=== PATIENT | female | born 2000 | race African-American/Black ===

== ENCOUNTER 2020-06-13 08:40 | Inpatient (IN) | payer BC, OTHER ==
[2020-06-13 09:08] VITALS: BMI 24.7
[2020-06-13] MEDS ORDERED: Butorphanol Tartrate 1 MG/ML VIAL SLOW IVP PRN (09:48)
[2020-06-13] MEDS ORDERED: hydrALAZINE 20 MG/ML VIAL SLOW IVP PRN ×2 (09:48→15:49)
[2020-06-13] MEDS ORDERED: Famotidine/PF 20 mg/2ml Vial SLOW IVP PRN (09:48)
[2020-06-13] MEDS ORDERED: Bicitra 30 ML UDCUP PO PRN (09:48)
[2020-06-13] MEDS ORDERED: Acetaminophen 500 MG TAB PO PRN (09:48)
[2020-06-13] MEDS ORDERED: Promethazine HCl 25 MG/ML VIAL IM PRN ×3 (09:48→15:49)
[2020-06-13] MEDS ORDERED: Ondansetron PF 4 MG/2 ML Vial IVP PRN ×2 (09:48→13:46)
[2020-06-13] MEDS ORDERED: CEFAZOLIN 2 GM in Premix Bag 1 BAG IVPB SCH (10:00)
[2020-06-13] MEDS: Lactated Ringer's 1,000 ML IV SCH ×2 (10:30→11:55)
[2020-06-13 10:46] LABS: Hemoglobin 9.3 g/dL (12.0-15.5); Mean Corpuscular HGB CONC 31.5 g/dL (32.0-36.0); Mean Corpuscular Hemoglobin 21.7 pg (27.0-33.0); Mean Corpuscular Volume 68.9 fl (81.6-98.3); Mean Platelet Volume 9.6 fl (7.4-10.4); Platelet Count 289 10x3/uL (150-450); RBC Distribution Width 21.4 % (11.5-14.5); Red Blood Cell (RBC) Count 4.28 10x6/uL (3.90-5.03); White Blood Cell (WBC) Count 12.6 10x3/uL (3.5-10.5)
[2020-06-13] MEDS ORDERED: Bicitra 30 ML UDCUP ONE (11:13)
[2020-06-13 11:32] LABS: Hep B Surf Ag Non-Reactive S/CO (NonReactive); Syphilis Antibody Nonreactive (Nonreactive); Syphilis Antibody Index 0.04 S/CO (<1.00 Non-Reactive)
[2020-06-13 11:44] LABS: HBSAg Index 0.17 S/CO (0-0.99)
[2020-06-13] MEDS ORDERED: ePHEDrine Sulfate 50 MG/10 ML VIAL ONE (12:02)
[2020-06-13] MEDS ORDERED: Midazolam HCl 2 mg/2 ml Vial ONE (12:02)
[2020-06-13] MEDS ORDERED: Ketorolac Tromethamine 30 MG/ML VIAL ONE (12:02)
[2020-06-13] MEDS ORDERED: Morphine PF 10 MG/10 ML VIAL ONE (12:02)
[2020-06-13] MEDS ORDERED: Dexamethasone 4 mg/ml Vial ONE (12:03)
[2020-06-13] MEDS ORDERED: Phenylephrine 10 MG/ML VIAL ONE (12:03)
[2020-06-13] MEDS ORDERED: Oxytocin 10 UNITS/ML VIAL ONE (12:03)
[2020-06-13] MEDS ORDERED: Ondansetron PF 4 MG/2 ML Vial ONE (12:03)
[2020-06-13] MEDS ORDERED: Azithromycin 500 MG in Sodium Chloride 0.9% 250 ML 250 ML IVPB SCH (12:30)
[2020-06-13] MEDS ORDERED: Meperidine HCl/PF 25 MG/ML VIAL SLOW IVP PRN (13:46)
[2020-06-13] MEDS ORDERED: Naloxone HCl 0.4 mg/ml Vial IVP PRN ×2 (13:46)
[2020-06-13] MEDS ORDERED: Ketorolac Tromethamine 30 MG/ML VIAL IVP PRN (13:46)
[2020-06-13] MEDS ORDERED: diphenhydrAMINE 50 MG/ML VIAL IVP PRN (13:46)
[2020-06-13] MEDS ORDERED: L&D-Morphine 4 MG/ML VIAL SLOW IVP PRN (13:46)
[2020-06-13] MEDS ORDERED: Ondansetron HCl/PF 4 MG/2 ML Vial IVP PRN (13:46)
[2020-06-13] MEDS ORDERED: Promethazine HCl 25 MG SUPP PR PRN (13:46)
[2020-06-13] MEDS ORDERED: Naloxone HCl 0.4 mg/ml Vial IV PRN (13:46)
[2020-06-13] MEDS ORDERED: HYDROmorphone 2 MG/ML VIAL SLOW IVP PRN (13:46)
[2020-06-13] MEDS ORDERED: Ketorolac Tromethamine 30 MG/ML VIAL IVP SCH (14:00)
[2020-06-13] MEDS ORDERED: Communication Order-Pharmacy FS SCH (14:00)
[2020-06-13] MEDS ORDERED: Adacel (T-DAP) 0.5 ML SYRINGE IM ONE (15:49)
[2020-06-13] MEDS ORDERED: diphenhydrAMINE 25 MG CAP PO PRN (15:49)
[2020-06-13] MEDS ORDERED: Lanolin Ointment 7 GM TUBE TOP PRN (15:49)
[2020-06-13] MEDS ORDERED: Acetaminophen 325 MG TAB PO PRN (15:49)
[2020-06-13] MEDS ORDERED: Simethicone Chewable 80 MG TAB PO PRN (15:49)
[2020-06-13 19:53] LABS: SARS-CoV-2 PCR NAA for Saliva Not Detected (NotDetected)
[2020-06-13] MEDS: levETIRAcetam 500 MG TAB PO SCH (23:33)
[2020-06-13] MEDS: Docusate Calcium (SURFAK) 240 MG CAP PO SCH (23:33)
[2020-06-14] MEDS ORDERED: HYDROcodone/Acetaminophen 5/325 mg Tablet PO PRN ×2 (02:00)
[2020-06-14 07:09] LABS: Hemoglobin 7.8 g/dL (12.0-15.5); Mean Corpuscular HGB CONC 30.7 g/dL (32.0-36.0); Mean Corpuscular Hemoglobin 21.3 pg (27.0-33.0); Mean Corpuscular Volume 69.4 fl (81.6-98.3); Mean Platelet Volume 9.7 fl (7.4-10.4); Platelet Count 264 10x3/uL (150-450); Red Blood Cell (RBC) Count 3.66 10x6/uL (3.90-5.03); White Blood Cell (WBC) Count 16.1 10x3/uL (3.5-10.5)
[2020-06-14] MEDS: Docusate Calcium (SURFAK) 240 MG CAP PO SCH ×2 (08:34→21:27)
[2020-06-14] MEDS: Prenatal Vitamin 1 TAB PO SCH (08:34)
[2020-06-14] MEDS: levETIRAcetam 500 MG TAB PO SCH ×2 (09:54→21:27)
[2020-06-14] MEDS: Ibuprofen 800 MG TAB PO SCH ×2 (14:21→21:27)
[2020-06-15] MEDS: Ibuprofen 800 MG TAB PO SCH ×3 (05:32→10:13)
[2020-06-15] MEDS: Prenatal Vitamin 1 TAB PO SCH (09:12)
[2020-06-15] MEDS: levETIRAcetam 500 MG TAB PO SCH (09:12)
[2020-06-15] MEDS: Docusate Calcium (SURFAK) 240 MG CAP PO SCH (09:12)
[2020-06-15 16:37] VITALS: BP 115/52; TEMP 97.9
== END 2020-06-15 14:40 | disposition home or self-care (01) | DRG 788 ==
LOC: CSHLD/OP 08:40 → CSHLD 10:29 → CSHPP 16:00
PROVIDERS: ADMIT Obstetrics & Gynecology; ATTEND Obstetrics & Gynecology
PROC: 10D00Z1 Extraction of Products of Conception, Low, Open Approach (ICD-10-PCS; principal; 2020-06-13)
DX: O99.354 Diseases of the nervous system complicating childbirth (principal); Z20.822 Contact with and (suspected) exposure to COVID-19; Z37.0 Single live birth; Z3A.38 38 weeks gestation of pregnancy; G40.909 Epilepsy, unspecified, not intractable, without status epilepticus
CPT/HCPCS: 36415; 51702; 85027; 86780; 86850; 86900; 86901; 87340; 87635; J1100; J1885; J2250; J2270; J2370; J2405; U0003; U0005

== ENCOUNTER 2022-04-05 10:55 | Emergency (ER) | payer BC, OTHER ==
[2022-04-05 11:47] LABS: Bilirubin Neg (Negative); Blood, Urine Negative (Negative); Clarity Slightly Cloudy (Clear); Glucose, Urine (Dipstick) Normal (Negative); Ketone, Urine Negative (Negative); Leukocyte 500 (Negative); Nitrite Positive (Negative); Protein, Urine (Dipstick) 15 mg/dl (Neg-Trace)
[2022-04-05 11:53] LABS: Pregnancy Test - Urine (BHCG) POSITIVE (Negative); Pregu Control Background? CLEAR/WHITE (CLR/WHITE); Pregu Control Bar Appear? YES (CONTROL BAR)
[2022-04-05 12:00] LABS: RBC/HPF 0-3 HPF (0-3)
[2022-04-05 12:01] LABS: Bacteria/HPF 4+ HPF (None Seen)
[2022-04-05 13:42] LABS: #Eosinphils 0.1 10x3/uL (0.0-0.5); #Monocytes 0.6 10x3/uL (0.0-1.1); #Neutrophils 6.7 10x3/uL (1.5-8.4); %Basophils 0.4 % (0.0-2.0); %Eosinophils 1.3 % (0.0-6.0); %Lymphocytes 26.1 % (18.0-47.0); %Monocytes 5.8 % (0.0-10.0); %Neutrophils 66.1 % (40.0-75.0); Hemoglobin 9.6 g/dL (12.0-15.5); Mean Corpuscular HGB CONC 32.8 g/dL (32.0-36.0); Mean Corpuscular Hemoglobin 23.6 pg (27.0-33.0); Mean Platelet Volume 9.4 fl (7.4-10.4); Platelet Count 342 10x3/uL (150-450); RBC Distribution Width 16.6 % (11.5-14.5); Red Blood Cell (RBC) Count 4.07 10x6/uL (3.90-5.03); White Blood Cell (WBC) Count 10.1 10x3/uL (3.5-10.5)
[2022-04-05 13:50] LABS: ALT (SGPT) 6 U/L (8-55); AST (SGOT) 13 U/L (5-34); Albumin 3.8 g/dL (3.5-5.0); Alkaline Phosphatase 35 U/L (40-110); Anion Gap 12 mmol/L (10-20); BUN (Urea Nitrogen) 12 mg/dL (7.0-18.7); Bilirubin, Total 0.3 mg/dL (0.2-1.2); Calc. Creatinine Clearance 0 mL/min (70-130); Calcium 9.1 mg/dL (7.8-10.44); Carbon Dioxide 22 mmol/L (22-29); Chloride 105 mmol/L (98-107); Estimated GFR 126; Globulin 3.4 g/dL (2.4-3.5); Glucose 76 mg/dL (70-105); Lipase 25 U/L (8-78); Potassium 3.9 mmol/L (3.5-5.1); Protein, Total 7.2 g/dL (6.0-8.3); Sodium 135 mmol/L (136-145)
== END 2022-04-05 16:25 | disposition home or self-care (01) ==
LOC: CSHERS 10:55
DX: O99.891 Other specified diseases and conditions complicating pregnancy (principal); R10.13 Epigastric pain; O23.41 Unspecified infection of urinary tract in pregnancy, first trimester; N39.0 Urinary tract infection, site not specified; Z3A.08 8 weeks gestation of pregnancy
CPT/HCPCS: 76856; 80053; 81003; 81015; 81025; 83690; 84702; 85025

== ENCOUNTER 2022-05-27 10:27 | Emergency (ER) | payer BC, OTHER ==
[2022-05-27 12:00] LABS: Bilirubin Neg (Negative); Blood, Urine Negative (Negative); Clarity Cloudy (Clear); Glucose, Urine (Dipstick) Normal (Negative); Ketone, Urine Negative (Negative); Leukocyte 500 (Negative); Nitrite Positive (Negative); Protein, Urine (Dipstick) Negative (Neg-Trace); Urobilinogen Normal mg/dL (Less than 2)
[2022-05-27 12:06] LABS: RBC/HPF 0-3 HPF (0-3)
[2022-05-27 12:07] LABS: Bacteria/HPF 4+ HPF (None Seen); Squamous Epithelial 0-3 HPF (0-3)
[2022-05-27] MEDS ORDERED: Nitrofurantoin Monohyd/M-Cryst 100 MG CAP PO SCH (12:45)
== END 2022-05-27 13:03 | disposition home or self-care (01) ==
LOC: CSHERS 10:27
DX: O99.891 Other specified diseases and conditions complicating pregnancy (principal); R82.71 Bacteriuria; Z3A.17 17 weeks gestation of pregnancy
CPT/HCPCS: 76815; 81003; 81015; 87077; 87086; 87186

== ENCOUNTER 2023-09-25 07:25 | Emergency (ER) | payer BC, OTHER ==
[2023-09-25] MEDS ORDERED: Ibuprofen 200 MG TAB ONE (07:45)
[2023-09-25 08:57] LABS: Bilirubin Neg (Negative); Blood, Urine Negative (Negative); Clarity Clear (Clear); Glucose, Urine (Dipstick) Normal (Negative); Ketone, Urine Negative (Negative); Leukocyte Negative (Negative); Nitrite Negative (Negative); Protein, Urine (Dipstick) 15 mg/dl (Neg-Trace); Specific Gravity, Urine 1.015 (1.005-1.030)
[2023-09-25 09:08] LABS: Pregnancy Test - Urine (BHCG) Negative (Negative); Pregu Control Background? CLEAR/WHITE (CLR/WHITE); Pregu Control Bar Appear? YES (CONTROL BAR); Specific Gravity 1.015 (1.002-1.036)
[2023-09-25 09:18] LABS: Bacteria/HPF 3+ HPF (None Seen); CAUTI Indications for Culture Pelvic or flank pain; Mucous/LPF 3+ LPF (<2+); RBC/HPF None Seen HPF (0-3); Squamous Epithelial 0-3 HPF (0-3); Urine Culture Reflex No No; WBC/HPF 0-3 HPF (0-3)
== END 2023-09-25 09:20 | disposition home or self-care (01) ==
LOC: CSHERS 07:25
DX: M54.50 Low back pain, unspecified (principal)
CPT/HCPCS: 81001; 81025; 99283

== ENCOUNTER 2023-12-19 17:17 | Emergency (ER) | payer BC, OTHER ==
[2023-12-19] MEDS ORDERED: Ketorolac Tromethamine 30 MG (1 mL) VIAL ONE (17:44)
[2023-12-19] MEDS ORDERED: Dexamethasone 10 MG/ML VIAL ONE (17:44)
[2023-12-19 18:32] LABS: Influenza A by NAA Not Detected (NotDetected); Influenza B by NAA Not Detected (NotDetected); SARS-CoV-2 NAA Rapid Test Not Detected (NotDetected)
== END 2023-12-19 18:57 | disposition home or self-care (01) ==
LOC: CSHERS 17:17
DX: J02.9 Acute pharyngitis, unspecified (principal); M79.10 Myalgia, unspecified site; R05.9 Cough, unspecified
CPT/HCPCS: 71046; 96372; J1100; J1885

== ENCOUNTER 2024-03-02 00:44 | Emergency (ER) | payer BC, OTHER ==
[2024-03-02] MEDS ORDERED: Acetaminophen 325 MG TAB ONE (01:10)
[2024-03-02] MEDS ORDERED: levETIRAcetam 500 MG (5 mL) VIAL ONE (01:10)
[2024-03-02 01:56] LABS: #Basophils 0.04 10x3/uL (0.0-0.2); #Eosinophils 0.21 10x3/uL (0.0-0.5); #Neutrophils 5.96 10x3/uL (1.5-8.4); %Basophils 0.5 % (0.0-2.0); %Eosinophils 2.6 % (0.0-6.0); %Lymphocytes 18.2 % (18.0-47.0); %Monocytes 6.1 % (0.0-10.0); %Neutrophils 72.5 % (40.0-75.0); Hematocrit 35.6 % (34.9-44.5); Hemoglobin 11.2 g/dL (12.0-15.5); Mean Corpuscular HGB CONC 31.5 g/dL (32.0-36.0); Mean Corpuscular Hemoglobin 23.9 pg (27.0-33.0); Mean Corpuscular Volume 75.9 fL (81.6-98.3); Mean Platelet Volume 8.9 fL (7.4-10.4); Platelet Count 281 10x3/uL (150-450); RBC Distribution Width 14.1 % (11.5-14.5); Red Blood Cell (RBC) Count 4.69 10x6/uL (3.90-5.03); White Blood Cell (WBC) Count 8.2 10x3/uL (3.5-10.5)
[2024-03-02 01:58] LABS: BHCG - Serum Negative (NEGATIVE); Pregs Control Background? CLEAR/WHITE (CLR/WHITE); Pregs Control Bar Appear? YES (CONTROL BAR)
[2024-03-02 02:01] LABS: ALT (SGPT) 9 U/L (8-55); AST (SGOT) 15 U/L (5-34); Albumin 4.2 g/dL (3.5-5.0); Alkaline Phosphatase 35 U/L (40-110); Anion Gap 14 mmol/L (10-20); BUN (Urea Nitrogen) 9 mg/dL (7.0-18.7); Bilirubin, Total 0.8 mg/dL (0.2-1.2); Calc. Creatinine Clearance 0 mL/min (70-130); Calcium 9.1 mg/dL (7.8-10.44); Carbon Dioxide 23 mmol/L (22-29); Chloride 106 mmol/L (98-107); Estimated GFR 114; Globulin 3.7 g/dL (2.4-3.5); Glucose 83 mg/dL (70-105); Potassium 3.5 mmol/L (3.5-5.1); Protein, Total 7.9 g/dL (6.0-8.3); Sodium 139 mmol/L (136-145)
[2024-03-02] MEDS ORDERED: diphenhydrAMINE 50 MG/ML VIAL ONE (02:40)
[2024-03-02] MEDS ORDERED: Prochlorperazine 10 MG/2 ML VIAL ONE (02:41)
[2024-03-02] MEDS ORDERED: Ketorolac Tromethamine 30 MG (1 mL) VIAL ONE (02:41)
== END 2024-03-02 03:56 | disposition home or self-care (01) ==
LOC: CSHERS 00:44
DX: R56.9 Unspecified convulsions (principal); R51.9 Headache, unspecified
CPT/HCPCS: 36415; 70450; 80053; 83605; 84146; 84703; 85025; 96361; 96374; 96375; J0780; J1200; J1885; J1953

== ENCOUNTER 2024-03-10 05:15 | Emergency (ER) | payer BC ==
[2024-03-10] MEDS ORDERED: Dexamethasone 10 MG/ML VIAL ONE (05:22)
[2024-03-10] MEDS ORDERED: Droperidol 5 MG/2 ML VIAL ONE (05:22)
[2024-03-10] MEDS ORDERED: diphenhydrAMINE 50 MG/ML VIAL ONE (05:22)
== END 2024-03-10 06:53 | disposition home or self-care (01) ==
LOC: CSHERS 05:15
DX: G43.919 Migraine, unspecified, intractable, without status migrainosus (principal)
CPT/HCPCS: 96374; 96375; J1100; J1200; J1790